=== PATIENT | female | born 1960 | race Caucasian/White ===

== ENCOUNTER 2024-11-19 18:56 | Day surgery (SDC) | payer BC ==
[2024-11-19] MEDS ORDERED: ONDANSETRON 4 MG/2 ML VIAL ONE (19:32)
[2024-11-19] MEDS ORDERED: HYDROmorphone HCL CARPU-JECT 2 MG/1 ML DISP.SYRIN ONE (19:36)
[2024-11-19] MEDS: ONDANSETRON 4 MG/2 ML VIAL IVPB ONE (19:39)
[2024-11-19 19:57] LABS: ABSOLUTE IMMATURE GRANULOCYTES 0.07 x10^3/uL (0.0-0.031); BASOPHILS # 0.04 x10^3/uL (0.01-0.08); EOSINOPHIL % 1.0 % (0.7-5.8); EOSINOPHILS # 0.13 x10^3/uL (0.04-0.36); MCHC 32.9 g/dl (32.2-35.5); MEAN CELL VOLUME 84.4 fl (79.4-94.8); MEAN PLT VOLUME 9.8 fl (9.4-12.3); MONOCYTE # 0.62 x10^3/uL (0.24-0.86); MONOCYTE % 5.0 % (4.7-12.5); RDW 13.9 % (12.4-16.4)
[2024-11-19 20:08] LABS: INR 1.01 (0.83-1.09); PROTHROMBIN TIME (PATIENT) 11.0 SEC (9.7-13.0)
[2024-11-19 20:21] LABS: GLUCOSE,RANDOM 136.0 mg/dL (74-106)
[2024-11-19 20:22] LABS: CO2 22.0 mmol/L (21-32)
[2024-11-19 20:24] LABS: ALK PHOS 56.0 U/L (40-150)
[2024-11-19 20:25] LABS: LACTIC ACID 3.4 mmol/L (0.4-2.0)
[2024-11-19 20:27] LABS: CREATININE 0.63 mg/dL (0.55-1.3); SGOT/AST 36.0 U/L (5-34); SGPT/ALT 34.0 U/L (0-55)
[2024-11-19] MEDS: LACTATED RINGERS SOLUTION 1000 ML INFUS.BAG IV ONE (20:35)
[2024-11-19 21:04] LABS: TOT PROT 7.8 g/dl (6.4-8.2)
[2024-11-19] MEDS ORDERED: ONDANSETRON 4 MG/2 ML VIAL IVPUSH PRN (21:17)
[2024-11-19] MEDS ORDERED: morphine CARPU-JECT 2 MG/1 ML DISP.SYRIN IM PRN (21:18)
[2024-11-19] MEDS ORDERED: HEPARIN NA (PORCINE) 5,000 UNITS/ML 1ML VIAL SQ SCH (22:00)
[2024-11-19] MEDS ORDERED: MIDAZOLAM HCL 2 MG/2 ML SINGLE DOSE VIAL ONE (23:17)
[2024-11-19] MEDS ORDERED: PROPOFOL 20 ML ONE (23:17)
[2024-11-19] MEDS ORDERED: LIDOCAINE HCL 2% 100 MG/5 ML DISP.SYRIN ONE (23:17)
[2024-11-19] MEDS ORDERED: ROCURONIUM BROMIDE 50 MG/5 ML SYRINGE ONE (23:18)
[2024-11-19] MEDS: BUPIVACAINE HCL/PF 0.5% (5MG/ML) 10 ML VIAL IJ ONE (23:37)
[2024-11-19] MEDS: HEPARIN NA (PORCINE) 5,000 UNITS/ML 1ML VIAL SQ ONE (23:38)
[2024-11-19] MEDS ORDERED: SUGAMMADEX SODIUM 200 MG/2 ML VIAL ONE (23:46)
[2024-11-20] MEDS ORDERED: ALBUTEROL SO4 HFA INHALER IH ONE (00:53)
[2024-11-20] MEDS ORDERED: PROPOFOL 20 ML ONE (00:55)
[2024-11-20] MEDS ORDERED: PROMETHAZINE HCL 25 MG/1 ML VIAL IVPB PRN (01:08)
[2024-11-20] MEDS ORDERED: ONDANSETRON 4 MG/2 ML VIAL IVPUSH PRN ×3 (01:08→01:24)
[2024-11-20] MEDS: ACETAMINOPHEN 1000 MG/100 ML BAG IVPB ONE (01:18)
[2024-11-20] MEDS: LACTATED RINGERS SOLUTION 1,000 ML IV SCH ×2 (01:19→01:26)
[2024-11-20] MEDS ORDERED: PIPERACILLIN/TAZOB 4.5 GM 4.5 GM in DEXTROSE 5%-WATER 100 ML IVPB SCH (03:00)
[2024-11-20] MEDS: DEXTROSE 5%-0.45% SALINE 1,000 ML IV SCH (03:34)
[2024-11-20] MEDS: LEVOTHYROXINE NA 50 MCG TABLET (FP) PO SCH (06:35)
[2024-11-20] MEDS: CEFAZOLIN 1 GM in DEXTROSE 5%-WATER - 50 ML IVPB SCH (06:58)
[2024-11-20] MEDS ORDERED: LEVOTHYROXINE NA 50 MCG TABLET (FP) PO SCH (07:00)
[2024-11-20 08:37] LABS: MCHC 32.3 g/dl (32.2-35.5); MEAN CELL VOLUME 86.8 fl (79.4-94.8); MEAN PLT VOLUME 10.6 fl (9.4-12.3); RDW 14.3 % (12.4-16.4)
[2024-11-20 08:45] LABS: INR 1.12 (0.83-1.09); PROTHROMBIN TIME (PATIENT) 12.3 SEC (9.7-13.0)
[2024-11-20 09:15] LABS: GLUCOSE,RANDOM 142.0 mg/dL (74-106)
[2024-11-20 09:16] LABS: CO2 22.0 mmol/L (21-32); TOT PROT 6.9 g/dl (6.4-8.2)
[2024-11-20 09:18] LABS: ALK PHOS 51.0 U/L (40-150)
[2024-11-20 09:21] LABS: CREATININE 0.55 mg/dL (0.55-1.3); SGOT/AST 31.0 U/L (5-34); SGPT/ALT 34.0 U/L (0-55)
[2024-11-20] MEDS ORDERED: PANTOPRAZOLE 40 MG TABLET PO SCH (10:00)
[2024-11-20] MEDS: MULTIVITAMINS (DAILY MVI) TABLET (FP) PO SCH (10:09)
[2024-11-20] MEDS: ACETAMINOPHEN 1000 MG/100 ML BAG IVPB SCH (10:10)
[2024-11-20] MEDS: PANTOPRAZOLE 40 MG TABLET PO SCH (10:10)
[2024-11-20] MEDS: ENOXAPARIN NA (PORCINE) 40 MG/0.4 ML DISP.SYRIN SQ SCH (13:41)
[2024-11-20 14:58] VITALS: BMI 36.5
[2024-11-20] MEDS ORDERED: DEXTROSE 5%-0.45% SALINE 1,000 ML IV SCH (21:15)
[2024-11-20] MEDS ORDERED: ROSUVASTATIN CA 20 MG TABLET PO SCH (22:00)
[2024-11-21 07:08] LABS: ABSOLUTE IMMATURE GRANULOCYTES 0.06 x10^3/uL (0.0-0.031); BASOPHILS # 0.03 x10^3/uL (0.01-0.08); EOSINOPHIL % 0.1 % (0.7-5.8); EOSINOPHILS # 0.01 x10^3/uL (0.04-0.36); MCHC 32.1 g/dl (32.2-35.5); MEAN CELL VOLUME 87.1 fl (79.4-94.8); MEAN PLT VOLUME 9.7 fl (9.4-12.3); MONOCYTE # 1.06 x10^3/uL (0.24-0.86); MONOCYTE % 7.4 % (4.7-12.5); RDW 14.6 % (12.4-16.4)
[2024-11-21 07:31] LABS: GLUCOSE,RANDOM 118.0 mg/dL (74-106)
[2024-11-21 07:32] LABS: TOT PROT 6.1 g/dl (6.4-8.2)
[2024-11-21 07:33] LABS: CO2 27.0 mmol/L (21-32)
[2024-11-21 07:35] LABS: ALK PHOS 43.0 U/L (40-150)
[2024-11-21 07:37] LABS: CREATININE 0.61 mg/dL (0.55-1.3); SGOT/AST 20.0 U/L (5-34); SGPT/ALT 21.0 U/L (0-55)
[2024-11-21] MEDS: NAPH,MB-DB/K PH,MBDB POWDER PACKET PO ONE (09:13)
[2024-11-21] MEDS ORDERED: ACETAMINOPHEN 325 MG TABLET (FP) PO PRN ×2 (12:40→12:53)
[2024-11-21] MEDS: LIDOCAINE 5% TOPICAL PATCH TP SCH (12:56)
[2024-11-21] MEDS: ACETAMINOPHEN 325 MG TABLET (FP) PO SCH (16:34)
[2024-11-21 21:47] VITALS: RESP 18
[2024-11-21] MEDS: ROSUVASTATIN CA 20 MG TABLET PO SCH (21:50)
[2024-11-21] MEDS: NAPH,MB-DB/K PH,MBDB POWDER PACKET PO SCH (21:50)
[2024-11-22] MEDS: LIDOCAINE PATCH REMOVAL MC SCH (01:32)
[2024-11-22] MEDS: DOCUSATE SODIUM 100 MG CAPSULE (FP) PO ONE (01:32)
[2024-11-22 10:10] VITALS: BP 136/80; PULSE 77; TEMP 98.6
[2024-11-22 10:13] LABS: ABSOLUTE IMMATURE GRANULOCYTES 0.08 x10^3/uL (0.0-0.031); BASOPHILS # 0.06 x10^3/uL (0.01-0.08); EOSINOPHIL % 1.5 % (0.7-5.8); EOSINOPHILS # 0.17 x10^3/uL (0.04-0.36); MCHC 31.9 g/dl (32.2-35.5); MEAN CELL VOLUME 88.1 fl (79.4-94.8); MEAN PLT VOLUME 9.6 fl (9.4-12.3); MONOCYTE # 0.98 x10^3/uL (0.24-0.86); MONOCYTE % 8.4 % (4.7-12.5); RDW 14.6 % (12.4-16.4)
[2024-11-22 12:02] LABS: GLUCOSE,RANDOM 102.0 mg/dL (74-106); TOT PROT 6.2 g/dl (6.4-8.2)
[2024-11-22 12:03] LABS: CO2 24.0 mmol/L (21-32)
[2024-11-22 12:05] LABS: ALK PHOS 44.0 U/L (40-150)
[2024-11-22 12:07] LABS: SGOT/AST 21.0 U/L (5-34); SGPT/ALT 18.0 U/L (0-55)
[2024-11-22 12:08] LABS: CREATININE 0.69 mg/dL (0.55-1.3)
== END 2024-11-22 12:59 | disposition home or self-care (01) ==
LOC: JER 18:56 → JERBED 20:27 → UNDOADMIN 20:27 → J8W 11-20 03:14 → JERBED 11-20 03:14 → JASUSAT 11-20 03:14 → J8W 11-20 15:24 → JASUSAT 11-22 12:59
PROVIDERS: ATTEND Nurse Practitioner Family
PROC: 0WUF4JZ Supplement Abdominal Wall with Synthetic Substitute, Percutaneous Endoscopic Approach (ICD-10-PCS; principal; 2024-11-20)
PROC: 8E0W4CZ Robotic Assisted Procedure of Trunk Region, Percutaneous Endoscopic Approach (ICD-10-PCS; 2024-11-20)
DX: K42.0 Umbilical hernia with obstruction, without gangrene (principal)
CPT/HCPCS: 49592; S2900; 36415; 74177-TC; 80053; 83605; 83735; 84100; 84484; 85025; 85027; 85610; 86140; 86850; 86900; 86901; 93005; 93010; 94010; 94760; 97116-GP; 97161-GP; 99285-25; Q9967